=== PATIENT | male | born 1960 | race Caucasian/White ===

== ENCOUNTER 2017-05-04 21:19 | Inpatient (IN) | payer MEDICAID ==
[~2017-05-04] VITALS: Ht 177.8 cm; Wt 99.4 kg
[2017-05-04 21:19] VITALS: BP_SYST 162
[2017-05-04] MEDS ORDERED: FAMOTIDINE PF 20 MG/2 ML VIAL IVP ONE (21:30)
[2017-05-04] MEDS ORDERED: ASPIRIN 325 MG TABLET PO ONE (21:30)
[2017-05-04] MEDS ORDERED: NITROGLYCERIN 0.4 MG TAB.SUBL SL ONE (21:30)
[2017-05-04] MEDS ORDERED: MORPHINE 4 MG/ML INJ. SYRINGE IVP ONE (21:30)
[2017-05-04 21:42] LABS: BASOPHILS # (AUTO) 0.1 K/uL (0.0-0.2); BASOPHILS % (AUTO) 0.8 % (0.0-2.0); EOSINOPHILS # (AUTO) 0.1 K/uL (0.0-0.4); EOSINOPHILS % (AUTO) 0.6 % (0.0-4.0); HEMATOCRIT 51.3 % (36-54); HEMOGLOBIN 17.1 g/dL (14.0-18.0); LYMPHOCYTES # (AUTO) 5.9 K/uL (1.0-5.5); LYMPHOCYTES % (AUTO) 48.5 % (20.5-51.5); MEAN CORPUSCULAR HEMOGLOBIN 30 pg (27-31); MEAN CORPUSCULAR HGB CONC 33 % (32-36); MEAN CORPUSCULAR VOLUME 91 fL (79.0-98.0); MONOCYTES # (AUTO) 0.8 K/uL (0.0-1.0); MONOCYTES % (AUTO) 6.1 % (1.7-9.3); NEUTROPHILS # (AUTO) 5.4 K/uL (1.8-7.7); PLATELET COUNT (AUTO) 236 K/uL (130-430); RED BLOOD CELL COUNT(AUTO) 5.66 MIL/uL (4.2-6.2); RED CELL DISTRIBUTION WIDTH 12.7 % (9.0-15.0); WHITE BLOOD COUNT (AUTO) 12.3 K/uL (4.8-10.8)
[2017-05-04 21:56] LABS: CALCIUM 9.2 mg/dL (8.4-11.0); CREATININE 0.97 mg/dL (0.55-1.30); POTASSIUM 3.5 mmol/L (3.5-5.1)
[2017-05-04] MEDS ORDERED: LISI-600 PO (22:02)
[2017-05-04 22:03] LABS: TOTAL BILIRUBIN 0.8 mg/dL (0.0-1.0); TOTAL PROTEIN, SERUM 7.7 g/dL (6.4-8.3)
[2017-05-04 22:07] LABS: PROTHROMBIN TIME 10.8 SECS (9.5-12.5)
[2017-05-04] MEDS ORDERED: HYDROmorphone 1 MG INJ. 1 MG/ML AMPUL IVP ONE (22:45)
[2017-05-05] VITALS (7 sets, daily range): BP systolic 109–149
[2017-05-05] MEDS ORDERED: HYDROmorphone 1 MG INJ. 1 MG/ML AMPUL IVP ONE (00:45)
[2017-05-05] MEDS ORDERED: ONDANSETRON HCL 4 MG/2 ML VIAL IVP ONE (01:15)
[2017-05-05] MEDS ORDERED: ONDANSETRON HCL 4 MG/2 ML VIAL IVP PRN (01:45)
[2017-05-05] MEDS ORDERED: NACL 0.9% 1,000 ML IV ONE (02:00)
[2017-05-05] MEDS: D5/0.45 NS 1,000 ML IV SCH ×2 (06:00→14:15)
[2017-05-05 07:11] LABS: BILIRUBIN,URINE 1+ (NEGATIVE); BLOOD, URINE NEGATIVE (NEGATIVE); CLARITY/URINE CLEAR (CLEAR); COLOR,URINE YELLOW (YELLOW); GLUCOSE,URINE NEGATIVE (NEGATIVE); KETONES,URINE TRACE (NEGATIVE); LEUKOCYTE ESTERASE ,URINE NEGATIVE (NEGATIVE); NITRITE, URINE NEGATIVE (NEGATIVE); PROTEIN URINE TRACE (NEGATIVE)
[2017-05-05 07:19] LABS: RBC,URINE 0-3 /HPF (0-3)
[2017-05-05 07:20] LABS: BACTERIA,URINE FEW /HPF (None Seen); MUCUS,URINE 1+ /LPF (None Seen); WBC,URINE 0-3 /HPF (0-3)
[2017-05-05 07:31] LABS: BASOPHILS % (AUTO) 0.2 % (0.0-2.0); HEMOGLOBIN 15.3 g/dL (14.0-18.0); LYMPHOCYTES # (AUTO) 1.7 K/uL (1.0-5.5); LYMPHOCYTES % (AUTO) 14.8 % (20.5-51.5); MEAN CORPUSCULAR HEMOGLOBIN 31 pg (27-31); MEAN CORPUSCULAR HGB CONC 33 % (32-36); MONOCYTES # (AUTO) 0.2 K/uL (0.0-1.0); MONOCYTES % (AUTO) 2.1 % (1.7-9.3); NEUTROPHILS # (AUTO) 9.4 K/uL (1.8-7.7); NEUTROPHILS % (AUTO) 82.9 % (40.0-70.0); PLATELET COUNT (AUTO) 240 K/uL (130-430); RED BLOOD CELL COUNT(AUTO) 4.97 MIL/uL (4.2-6.2); RED CELL DISTRIBUTION WIDTH 12.6 % (9.0-15.0); WHITE BLOOD COUNT (AUTO) 11.3 K/uL (4.8-10.8)
[2017-05-05 07:34] LABS: MEAN CORPUSCULAR VOLUME 93 fL (79.0-98.0)
[2017-05-05 08:05] LABS: ALBUMIN 3.4 g/dL (3.4-4.8); CALCIUM 8.6 mg/dL (8.4-11.0); CREATININE 1.02 mg/dL (0.55-1.30); POTASSIUM 4.3 mmol/L (3.5-5.1); TOTAL BILIRUBIN 0.7 mg/dL (0.0-1.0); TOTAL PROTEIN, SERUM 6.9 g/dL (6.4-8.3)
[2017-05-05] MEDS: MORPHINE 4 MG/ML INJ. SYRINGE IVP PRN ×2 (09:31→17:03)
[2017-05-05] MEDS ORDERED: LISINOPRIL 20 MG TABLET PO PRN (12:45)
[2017-05-05 13:16] LABS: AMYLASE 26 U/L (0-100); LIPASE 59 U/L (73-393)
[2017-05-05] MEDS: METOPROLOL TARTRATE 25 MG TABLET PO SCH (21:29)
[2017-05-06 00:29] VITALS: BP_SYST 98
[2017-05-06] MEDS: D5/0.45 NS 1,000 ML IV SCH ×2 (02:54→15:15)
[2017-05-06 05:10] VITALS: BP_SYST 109
[2017-05-06 08:00] VITALS: BP_SYST 137
[2017-05-06] MEDS: MORPHINE 4 MG/ML INJ. SYRINGE IVP PRN ×2 (08:00→18:30)
[2017-05-06] MEDS: PANTOPRAZOLE SODIUM 40 MG TAB PO SCH (08:00)
[2017-05-06] MEDS: METOPROLOL TARTRATE 25 MG TABLET PO SCH ×2 (08:00→20:32)
[2017-05-06 08:32] LABS: BASOPHILS % (AUTO) 0.5 % (0.0-2.0); EOSINOPHILS # (AUTO) 0.1 K/uL (0.0-0.4); EOSINOPHILS % (AUTO) 0.8 % (0.0-4.0); HEMATOCRIT 48.8 % (36-54); HEMOGLOBIN 15.9 g/dL (14.0-18.0); LYMPHOCYTES # (AUTO) 2.6 K/uL (1.0-5.5); LYMPHOCYTES % (AUTO) 32.1 % (20.5-51.5); MEAN CORPUSCULAR HEMOGLOBIN 30 pg (27-31); MEAN CORPUSCULAR HGB CONC 33 % (32-36); MEAN CORPUSCULAR VOLUME 93 fL (79.0-98.0); MONOCYTES # (AUTO) 0.4 K/uL (0.0-1.0); MONOCYTES % (AUTO) 5.4 % (1.7-9.3); NEUTROPHILS # (AUTO) 4.9 K/uL (1.8-7.7); NEUTROPHILS % (AUTO) 61.2 % (40.0-70.0); PLATELET COUNT (AUTO) 229 K/uL (130-430); RED BLOOD CELL COUNT(AUTO) 5.26 MIL/uL (4.2-6.2); RED CELL DISTRIBUTION WIDTH 12.6 % (9.0-15.0)
[2017-05-06 08:41] LABS: ALBUMIN 3.3 g/dL (3.4-4.8); CALCIUM 8.4 mg/dL (8.4-11.0); CREATININE 0.97 mg/dL (0.55-1.30); POTASSIUM 3.9 mmol/L (3.5-5.1); TOTAL BILIRUBIN 0.7 mg/dL (0.0-1.0); TOTAL PROTEIN, SERUM 6.8 g/dL (6.4-8.3)
[2017-05-06] MEDS ORDERED: ASPIRIN 81 MG TAB.CHEW PO SCH (09:00)
[2017-05-06 16:15] VITALS: BP_SYST 125
[2017-05-06] MEDS ORDERED: BISACODYL 5 MG TABLET.DR (DULCOLAX) PO ONE (17:00)
[2017-05-06] MEDS ORDERED: GOLYTELY / COLYTE SOLUTION 4 LITERS PO ONE (18:00)
[2017-05-06 19:39] VITALS: BP_SYST 147
[2017-05-07] VITALS (8 sets, daily range): BP systolic 94–160
[2017-05-07] MEDS: MORPHINE 4 MG/ML INJ. SYRINGE IVP PRN ×4 (00:27→16:11)
[2017-05-07] MEDS: ONDANSETRON HCL 4 MG/2 ML VIAL IVP PRN ×2 (00:27→18:56)
[2017-05-07] MEDS: D5/0.45 NS 1,000 ML IV SCH ×2 (05:04→16:16)
[2017-05-07 07:10] LABS: PROTHROMBIN TIME 10.4 SECS (9.5-12.5)
[2017-05-07] MEDS: PANTOPRAZOLE SODIUM 40 MG TAB PO SCH (08:11)
[2017-05-07] MEDS: METOPROLOL TARTRATE 25 MG TABLET PO SCH ×2 (08:12→20:45)
[2017-05-07] MEDS ORDERED: SIMETHICONE 40 MG/0.6 ML ML ONE (09:40)
[2017-05-07] MEDS ORDERED: MEPERIDINE HCL/PF 100 MG/ML AMP ONE (09:40)
[2017-05-07] MEDS ORDERED: MIDAZOLAM HCL 5 MG/5 ML VIAL ONE ×2 (09:40→09:41)
[2017-05-07] MEDS ORDERED: SIMETHICONE 80 MG TAB.CHEW PO PRN (16:30)
[2017-05-07] MEDS ORDERED: KETOROLAC TROMETHAMINE 30 MG VIAL IVP ONE (18:45)
[2017-05-07] MEDS ORDERED: MAG-AL HYDROX/SIMETH 30 ML UDC PO PRN (18:45)
[2017-05-08 03:56] VITALS: BP_SYST 139
[2017-05-08] MEDS: MORPHINE 4 MG/ML INJ. SYRINGE IVP PRN ×2 (04:45→09:03)
[2017-05-08] MEDS: D5/0.45 NS 1,000 ML IV SCH (06:30)
[2017-05-08 08:00] VITALS: BP_SYST 151
[2017-05-08] MEDS: PANTOPRAZOLE SODIUM 40 MG TAB PO SCH (09:00)
[2017-05-08] MEDS: METOPROLOL TARTRATE 25 MG TABLET PO SCH (09:01)
[2017-05-08 11:31] VITALS: BP_SYST 121
[2017-05-08] MEDS ORDERED: PRO40 PO (12:56)
[2017-05-08] MEDS ORDERED: AMLO5TAB4 PO (12:56)
[2017-05-08] MEDS ORDERED: PSYL3.4P6 PO (12:56)
[2017-05-08 13:40] VITALS: BP_SYST 121
== END 2017-05-08 14:56 | disposition home or self-care (01) | DRG 241 ==
LOC: SED 21:19 → SMU 05-05 01:45
PROC: 0DB78ZX Excision of Stomach, Pylorus, Via Natural or Artificial Opening Endoscopic, Diagnostic (ICD-10-PCS; principal; 2017-05-07 11:20)
PROC: 0DBL8ZX Excision of Transverse Colon, Via Natural or Artificial Opening Endoscopic, Diagnostic (ICD-10-PCS; 2017-05-07 11:20)
DX: K29.70 Gastritis, unspecified, without bleeding (principal); I11.9 Hypertensive heart disease without heart failure; K76.0 Fatty (change of) liver, not elsewhere classified; E11.9 Type 2 diabetes mellitus without complications; D72.829 Elevated white blood cell count, unspecified; K21.9 Gastro-esophageal reflux disease without esophagitis; K63.5 Polyp of colon; E66.9 Obesity, unspecified; K44.9 Diaphragmatic hernia without obstruction or gangrene; K64.9 Unspecified hemorrhoids; R07.89 Other chest pain; Z90.49 Acquired absence of other specified parts of digestive tract
CPT/HCPCS: 36415; 43239; 45380; 71010; 76700-TC; 80053; 81000-TC; 82150-TC; 82272; 82550-TC; 83690-TC; 83880; 84484; 85025; 85610-TC; 85730-TC; 87081; 88305; 88312; 88313; 93005; 93306; 96361; 96374; 96375; 96376; 99285; J1170; J1885; J2175; J2250; J2270; J2405; J3490; J7030